=== PATIENT | female | born 1995 | race Caucasian/White ===

== ENCOUNTER 2023-06-30 12:29 | Emergency (ER) | payer OTHER ==
[~2023-06-30] VITALS: Ht 154.9 cm; Wt 102.1 kg
[2023-06-30 13:08] VITALS: BP 116/69; PULSE 90; RESP 18; TEMP 97.7; O2SAT 97
[2023-06-30] MEDS: HYDROcodone/APAP 5/325 MG 1 TAB TAB PO ONE (14:23)
[2023-06-30] MEDS ORDERED: MORPHINE SULFATE 4 MG/ML SYR IM ONE (16:35)
[2023-06-30] MEDS ORDERED: HYDR-5080 PO (16:36)
== END 2023-06-30 17:09 | disposition home or self-care (01) ==
LOC: MED 12:29
DX: M25.461 Effusion, right knee (principal); Z79.899 Other long term (current) drug therapy
CPT/HCPCS: 29505; 73562; 81025; 99283